=== PATIENT | female | born 1965 | race Caucasian/White ===

== ENCOUNTER → 2020-04-27 | Outpatient (CLI) | payer OTHER ==
[2020-04-28 12:11] LABS: RHEUMATOID ARTHRITIS FACTOR 10.7 IU/mL (0.0-13.9)
== END ==
LOC: LAB 10:51
PROVIDERS: Internal Medicine
DX: D89.89 Other specified disorders involving the immune mechanism, not elsewhere classified (principal); R76.8 Other specified abnormal immunological findings in serum; M25.541 Pain in joints of right hand; M25.50 Pain in unspecified joint; M25.542 Pain in joints of left hand; M19.041 Primary osteoarthritis, right hand; M19.042 Primary osteoarthritis, left hand
CPT/HCPCS: 36415; 73130; 83520; 86200; 86431